=== PATIENT | female | born 1990 | race American Indian/Alaskan Native ===

== ENCOUNTER 2020-01-14 10:58 | Emergency (ER) | payer SELFPAY ==
[2020-01-14 11:06] VITALS: BP 126/80
--- NOTE | 2020-01-14 11:58 | Emergency Department Report ---
Chief Complaint: Upper Respiratory Infection Stated Complaint: FLU SYM Time Seen by Provider: 01/14/20 11:49 - HPI History of Present Illness: This is a 29 y.o. F. that presents with cough, fever and chills for 2 days. Patient states her children are sick and she think she caught something from them. She is taking NSAIDs and increased fluids. Denies myalgia, coryza, nausea, vomiting, diarrhea, headache, or abdominal pain. - ROS Review of Systems: ROS: Stated complaint: URI symptoms Other details as noted in HPI Constitutional: denies: chills, fever Respiratory: present: cough, congestion denies: shortness of breath, wheezing Cardiovascular: denies: chest pain, palpitations Gastrointestinal: denies: abdominal pain, nausea, diarrhea Musculoskeletal: denies: back pain, joint swelling, arthralgia Skin: denies: rash, lesions Neurological: denies: weakness, paresthesias, headache Psychiatric: denies: anxiety, depression - Exam Vital Signs: Vital Signs 01/14/20 11:04 Temperature 98.3 F Pulse Rate 87 Respiratory 18 Rate Blood Pressure 126/80 O2 Sat by Pulse 97 Oximetry Physical Exam: General Limitations: No Limitations General appearance: alert, in no apparent distress - Head Head exam: Present: atraumatic, normocephalic - Eye Eye exam: Present: normal appearance - ENT ENT exam: Present: turbinates congested with clear discharge, normal orophraynx, mucous membranes moist - Neck Neck exam: Present: normal inspection - Respiratory Respiratory exam: Present: normal lung sounds bilaterally. Absent: respiratory distress, wheezes, rales, rhonchi - Cardiovascular Cardiovascular Exam: Present: regular rate, normal rhythm, normal heart sounds. Absent: systolic murmur, diastolic murmur, rubs, gallop - GI/Abdominal GI/Abdominal exam: Present: soft, normal bowel sounds. Absent: tenderness, distended, guarding, rebound, rigid - Extremities Exam Extremities exam: Present: normal inspection - Back Exam Back exam: Present: normal inspection - Neurological Exam Neurological exam: Present: alert, oriented X3 - Psychiatric Psychiatric exam: Present: normal affect, normal mood - Skin Skin exam: Present: warm, dry, intact, normal color. Absent: rash MSE screening note: Focused history and physical exam performed. Due to findings the following was ordered: ED Medical Decision Making - Medical Decision Making This is a 29 y.o. female with upper respiratory symptoms for URI. VS and patient in no acute distress. Patient is otherwise healthy presenting with symptoms that are likely viral upper respiratory symptoms. Patient denies sore throat, myalgia, headache, abdominal pain, chest pain, SOB, or wheezing. This is unlikely [employer] due to no vocal changes, no uvula deviation. There is low suspicion of sinusitis and pneumonia. There are no signs of strep due to a negative centor score and no exudate. Advised to continue NSAIDs, increase fluids, and wash hands frequently. Follow up with PCP and given strict return precautions. ED Disposition for MSE Disposition: MED SCREENING EXAM-LEFT Condition: Stable Instructions: Upper Respiratory Infection (ED), Cold Symptoms (ED) Additional Instructions: Start taking ibuprofen and Tylenol every 6-8 hours. Follow up with your primary care doctor. Referrals: [facility] [Provider Group] - 3-5 Days [facility] [Provider Group] - 3-5 Days [facility] [Provider Group] - 3-5 Days Forms: Work/School Release Form(ED) Time of Disposition: 12:47
== END 2020-01-14 12:20 | disposition left against medical advice (07) ==
LOC: ED 10:58
DX: R05 Cough (principal); R50.9 Fever, unspecified
CPT/HCPCS: 99281